=== PATIENT | male | born 1985 | race Caucasian/White ===

== ENCOUNTER 2024-02-11 19:10 | Emergency (ER) | payer BC, SELFPAY ==
[2024-02-11 19:12] VITALS: BP 116/75
--- NOTE | 2024-02-11 19:58 | ED.GENMED ---
History of Present Illness
General
Chief Complaint: Musculo-Skeletal Complaint
Time Seen by Provider: 02/11/24 19:49
History of Present Illness
History of Present Illness:
38-year-old male presents to the emergency department for evaluation of right foot and ankle pain after colliding with another player during a lacrosse game. Is unable to bear weight on the right foot
Review of Systems
Review of Systems
Allergies reviewed?: Yes
All Other Systems: ROS reviewed and negative except as documented in HPI and ROS
Phy Exam
Physical Exam
Physical Exam:
GEN: Well appearing, NAD, WDWN
HEENT: Oral mucosa moist, no scleral icterus
Cardiac: Regular rate
Lung: No respiratory distress, no tachypnea
MSK: Moderate swelling and ecchymosis of the right ankle posterior to the talus. There is flaccidity to the Achilles tendon and a positive Whitley sign
Skin: Good color, no pallor or jaundice, no rashes
Neuro: AO x3, moves all extremities freely
Psych: Calm, cooperative
Course
Orders/Labs/Results
Orders:
Orders
02/11/24 19:14
Ankle, Right 3 view CR [CR Ankle - Right Min 3 Views *] Urgent
Comment:
Reason For Exam: injury
Vital Signs
Initial and Last Documented VS:
Initial Vital Signs
Temp Pulse Resp BP Pulse Ox
97.9 F 83 16 116/75 100
02/11/24 19:12 02/11/24 19:12 02/11/24 19:12 02/11/24 19:12 02/11/24 19:12
Last Documented Vital Signs
Temp Pulse Resp BP Pulse Ox
97.9 F 89 18 131/67 99
02/11/24 19:12 02/11/24 20:22 02/11/24 20:22 02/11/24 20:22 02/11/24 20:22
MDM/Problems Addressed
MDM/Problems Addressed:
Clinical exam concerning for Achilles tendon rupture. X-rays show a subtle fracture of the os trigonum. Patient is placed in a orthopedic boot for stabilization, advised nonweightbearing with crutches until orthopedic follow-up as an outpatient
*Critical Care Note
Total Time (30-74mins, 75-104mins- exclusive of procedures): Not Applicable
ED Attending Note
-
Portions of this chart may have been created with voice recognition software.� Occasional wrong word or��sound alike� substitutions may have occurred due to the inherent limitations of voice recognition software.
Discharge Plan
Departure
Patient Disposition: Home (Routine Discharge)
Date of Disposition: 02/11/24
Time of Disposition: 19:58
Patient with high blood pressure during this ER visit?: No
Discharge Problem:
Rupture of right Achilles tendon, fracture of right os trigonum
Instructions: Achilles Tendon Rupture (DC)
Referrals:
Jan George MD [Active] - Call in 1-3 days for appt
Activity Restrictions/Additional Instructions:
Ice and elevate the foot often
Interventions
Interventions:
*Risk Screen - Suicide Last Done: 02/11/24 20:20
*General Assessment Last Done: 02/11/24 19:12
*Neglect/Abuse Screening Last Done: 02/11/24 20:20
*Nursing Disposition Last Done: 02/11/24 20:22
ED-Musculoskeletal Assessment Last Done: 02/11/24 19:38
Discharge Date and Time
Discharge Date/Time: 02/11/24 20:23
Print Language: FAROESE
[2024-02-11 20:20] VITALS: BP 131/67
[2024-02-11 20:22] VITALS: BP 131/67
== END 2024-02-11 20:23 | disposition home or self-care (01) ==
LOC: EMR 19:10
PROVIDERS: EMERGENCY PHYSICIAN Emergency Medicine; FAMILY PHYSICIAN Nurse Practitioner Family
DX: S86.011A Strain of right Achilles tendon, initial encounter (principal); S82.891A Other fracture of right lower leg, initial encounter for closed fracture; W51.XXXA Accidental striking against or bumped into by another person, initial encounter
CPT/HCPCS: 99283; 73610

== ENCOUNTER → 2024-02-12 17:11 | Outpatient (REF) | payer BC, SELFPAY | LOC: RAD 17:11 | PROVIDERS: ATTENDING PHYSICIAN Orthopaedic Surgery; FAMILY PHYSICIAN Nurse Practitioner Family | DX: Z98.890 Other specified postprocedural states (principal) | CPT/HCPCS: 70030 ==

== ENCOUNTER 2024-07-29 09:09 | Emergency (ER) | payer BC, SELFPAY ==
[2024-07-29 09:18] VITALS: BP 144/90
[2024-07-29 09:58] LABS: % Basophils 0.5 % (0-2); % Eosinophils 1.6 % (0-6); % Immature Granulocytes 0.5 % (0-0.5); % Lymphocytes 31.4 % (20.5-51.1); % Monocytes 9.1 % (1.7-9.3); % Neutrophils 56.9 % (42.2-75.2); Absolute Eosinophils 0.1 10^3/uL (0-0.7); Absolute Lymphocytes 2.8 10^3/uL (1.2-3.4); Absolute Monocytes 0.8 10^3/uL (0.1-0.6); Absolute Neutrophils 5.1 10^3/uL (1.4-6.5); Hemoglobin 18.3 g/dL (13.0-18.0); Mean Corp Hgb Conc. 35.9 g/dL (33.0-37.0); Mean Corpuscular Hgb 30.1 pg (27.0-31.0); Mean Corpuscular Volume 83.9 fL (80.0-94.0); Mean Platelet Volume 9.4 fL (7.4-10.4); Nucleated Red Blood Cells % 0 % (-); Platelet Count 275 10^3/uL (130-400); Red Blood Cell Count 6.08 10^6/uL (4.70-6.10); Red Cell Dist. Width 11.9 % (11.5-14.5); White Blood Cell Count 8.9 10^3/uL (4.8-10.8)
[2024-07-29 10:09] LABS: Urine Albumin Negative (Neg - Trace); Urine Bilirubin Negative (Negative); Urine Character Clear (Clear); Urine Color Yellow; Urine Glucose Negative (Negative); Urine Ketone Trace (Negative); Urine Leukocyte Negative (Negative); Urine Nitrite Negative (Negative); Urine Occult Blood Negative (Negative); Urine Urobilinogen Negative (Neg - 1+)
[2024-07-29 10:15] LABS: ALT (SGPT) 26 U/L (0-50); AST (SGOT) 24 U/L (17-59); Albumin 4.8 g/dl (3.5-5.0); Alkaline Phosphatase 55 U/L (38-126); Blood Urea Nitrogen 12 mg/dl (9-20); Calcium 9.7 mg/dl (8.4-10.2); Carbon Dioxide 25 mmol/L (22-30); Chloride 98 mmol/L (98-107); Glucose 88 mg/dl (70-99); Potassium 4.5 mmol/L (3.5-5.1); Sodium 136 mmol/L (135-145); Total Bilirubin 3.6 mg/dl (0.2-1.3); Total Protein 7.8 g/dl (6.3-8.2); eGFR > 60.00
[2024-07-29 10:31] LABS: Lipase 56 U/L (23-300)
--- NOTE | 2024-07-29 10:45 | ED.GENMED ---
History of Present Illness
General
Chief Complaint: Abdominal Pain
Source: patient
Exam Limitations: none
Time Seen by Provider: 07/29/24 10:45
Nursing documentation reviewed up to this point in time: agreed with
History of Present Illness
History of Present Illness:
Patient is a 38-year-old male presents to the ED for evaluation. Pt reports he started having upper abdominal pain on Saturday 4 days ago. On Saturday he was at [employer] (did not drink alcohol ) and started again with upper abdominal pain and
vomited. On Saturday, he vomited approx 10 times. He had no associated diarrhea /fevers with episode.
Patient went to urgent care yesterday and was given Zofran and recommended to come to the ER for abdominal pain evaluation. He decided to try to go home however he was up throughout the night with complaints of pain. He complains of pain around
the umbilical area and upper. He reports it is intermittent feels very sharp at times. He denies any lower abdominal pain. No prior history of reflux.
He does have a GI specialist because his mother had multiple polyps removed.
No other sick contacts at home.
No drinks alcohol socially.
Review of Systems
Review of Systems
Allergies reviewed?: Yes
Other source history: family
All Other Systems: ROS reviewed and negative except as documented in HPI and ROS
Constitutional: Reports no symptoms; Denies fever, fatigue or chills
Respiratory: Reports no symptoms
Cardiac: Reports no symptoms
ABD/GI: Reports abdominal pain, nausea and vomiting; Denies diarrhea, constipated, bloody stools or black stools
: Reports no symptoms
Musculoskeletal: Reports no symptoms
Skin: Reports no symptoms
Neurological: Reports no symptoms
Psychiatric: Reports no symptoms
Phy Exam
General Physical Exam
General Presentation: no apparent distress
General age: appears stated age
General Skin: warm and dry
General Habitus: normal
General Mental: alert
Cardiovascular Exam
Cardiovascular Exam: regular rate/rhythm, no murmur and normal peripheral pulses
Pulmonary Exam
Pulmonary Exam: lungs clear and no respiratory distress
Gastrointestinal Exam
Gastrointestinal Exam: non tender and soft
Neurological Exam
Neurological Exam: alert
Nathalie Coma Scale
Eye Opening: Spontaneous
Verbal Response: Oriented
Motor Response: Obeys Commands
GCS Total Score: 15
Musculoskeletal Exam
Musculoskeletal Exam: full ROM
Skin Exam
Skin Exam: normal color and warm/dry
Psychiatric Exam
Psychiatric Exam: normal mood/affect
Course
Orders/Labs/Results
Orders:
Orders
07/29/24 09:26
Complete Blood Count/With Diff Urgent
Comprehensive Metabolic Panel Urgent
Lipase Urgent
Urinalysis Reflex To Culture Urgent
Date Specimen was Collected: 07/29/24
Time Specimen was Collected: 09:20
07/29/24 11:00
IV Insert/Care/Rem.- Treatment PRN
0.9% Sodium Chloride 1000 ml [Nss] 1,000 ml IV BOLUS
Famotidine [Pepcid] 20 mg IV NOW STA
Ondansetron Injectable [Zofran] 4 mg IV NOW STA
US Abdomen Complete/Upper Urgent
Comment:
Reason For Exam: upper abd pain
Abnormal Lab Results
07/29/24
09:26
Hgb 18.3 H g/dL
(13.0-18.0)
Absolute Monos (auto) 0.8 H 10^3/uL
(0.1-0.6)
Total Bilirubin 3.6 H mg/dl
(0.2-1.3)
Urine Ketones Trace A
(Negative)
07/29/24 09:26
07/29/24 09:26
Vital Signs
Initial and Last Documented VS:
Initial Vital Signs
Temp Pulse Resp BP Pulse Ox
98.7 F 66 16 144/90 100
07/29/24 09:18 07/29/24 09:18 07/29/24 09:18 07/29/24 09:18 07/29/24 09:18
Last Documented Vital Signs
Temp Pulse Resp BP Pulse Ox
98.7 F 70 18 130/79 100
07/29/24 09:18 07/29/24 11:40 07/29/24 11:40 07/29/24 11:40 07/29/24 11:40
MDM/Problems Addressed
Differential Diagnosis Includes:
not limited to: Viral syndrome dehydration GERD gastritis less likely biliary colic or acute pancreatitis
MDM/Problems Addressed:
Symptoms of abdominal pain are likely gastritis from multiple episodes of vomiting. Patient reports pain is intermittent. He has no acute distress no lower abdominal pain symptoms are not consistent with appendicitis or diverticulitis. Patient's
bilirubin is elevated however he has normal AST ALT and has had elevated bilirubins in the past possible Gilbert's disease.
Other labs unremarkable including normal white count normal chemistries. Ultrasound negative for acute findings pancreas is not visualized however normal lipase. Patient no acute distress with patient's complaints of strong intermittent abdominal
pains worse at night to upper abdominal umbilical area will DC on Protonix for the next 2 weeks with Zofran as needed for close the patient follow family doctor and GI specialist.
*Critical Care Note
Total Time (30-74mins, 75-104mins- exclusive of procedures): Not Applicable
ED Attending Note
-
Portions of this chart may have been created with voice recognition software.� Occasional wrong word or��sound alike� substitutions may have occurred due to the inherent limitations of voice recognition software.
Discharge Plan
Departure
Patient Disposition: Home (Routine Discharge)
Date of Disposition: 07/29/24
Time of Disposition: 12:27
Patient with high blood pressure during this ER visit?: Yes
Condition: Fair
Covid-19: Not Applicable
Discharge Problem:
Gastritis, Vomiting
Instructions: Nausea and Vomiting, Adult (DC), Gastritis (DC)
Prescriptions:
New
ondansetron 4 mg tablet,disintegrating
4 mg PO Q8H PRN (Reason: nausea and vomiting) Qty: 10 0RF
pantoprazole [Protonix] 40 mg tablet,delayed release (DR/EC)
40 mg PO DAILY Qty: 14 0RF
Referrals:
Kristina Garces CRNP [Family Provider] -
Stand Alone Forms: Return to Work
Interventions
Interventions:
*Risk Screen - Suicide Last Done: 07/29/24 09:18
*General Assessment Last Done: 07/29/24 11:40
*Neglect/Abuse Screening Last Done: 07/29/24 09:18
ED- Fall Risk Assessment Last Done: 07/29/24 11:40
*ED COVID-19 Vaccine History Last Done: 07/29/24 11:40
[facility]lteq[facility] Assessment Last Done: 07/29/24 11:40
Discharge Date and Time
Print Language: ANGUILLAN
[2024-07-29 11:40] VITALS: BP 130/79; BMI 28.1
[2024-07-29] MEDS: ZOFRAN 4 MG IV (11:48)
[2024-07-29] MEDS: NSS 1000 IV (11:48)
[2024-07-29] MEDS: PEPCID 20 MG IV (11:49)
[2024-07-29 12:00] VITALS: BP 136/80
[2024-07-29 13:00] VITALS: BP 135/80
== END 2024-07-29 13:26 | disposition home or self-care (01) ==
LOC: EMR 09:09
PROVIDERS: Emergency Medicine; EMERGENCY PHYSICIAN Emergency Medicine; FAMILY PHYSICIAN Nurse Practitioner Family
DX: K29.70 Gastritis, unspecified, without bleeding (principal)
CPT/HCPCS: 96374; 96375; 96361; 99284; 76700; 80053; 81003; 83690; 85025

== ENCOUNTER 2025-06-08 13:14 | Emergency (ER) | payer BC, SELFPAY ==
[2025-06-08 13:21] VITALS: BP 160/92
--- NOTE | 2025-06-08 13:51 | ED.GENMED ---
History of Present Illness
General
Chief Complaint: Headache
Source: patient
Exam Limitations: none
Time Seen by Provider: 06/08/25 13:50
History of Present Illness
History of Present Illness:
39yoM with no significant past medical history presenting with his for evaluation of headache and dizziness. He reports a pain in his left temporal area that has been ongoing for the past 2 weeks. Pain is mild for the most part but becomes
worse at times. He also is having pain behind the left eye. His eyes will be red when he wakes up in the morning. He also reports intermittent dizziness which is describes as feeling like he is on a boat and not feeling like himself. He felt
like he had a pass out this morning and decided to come to the ED. Patient also reports visual disturbance and feels like objects are 'streaking' when he moves his eyes quickly. He denies any diplopia or visual field cuts. He was seen at urgent
care 1-2 years ago for jaw pain and was prescribed a muscle relaxer. He denies any jaw pain with movement/chewing.
Phy Exam
General Physical Exam
General Presentation: well appearing and no apparent distress
General age: appears stated age
General Skin: warm and dry
General Habitus: normal
General Mental: alert
ENT Exam
ENT Exam: normocephalic and other (L TM normal. Cerumen impaction in R ear.)
Additional ENT: No temporal tenderness.
Eye Exam
Eye Exam: PERRL, EOMI, conjunctiva normal, visual larry normal and other (Pressure in both eyes 18-19mmHg)
Right 20/: 20
Left 20/: 20
Pulmonary Exam
Pulmonary Exam: no respiratory distress
Neurological Exam
Neurological Exam: alert, no motor deficits, cerebellum intact and other (Normal finger to nose and heel to vázquez bilaterally)
Clifford Coma Scale
Eye Opening: Spontaneous
Verbal Response: Oriented
Motor Response: Obeys Commands
GCS Total Score: 15
Skin Exam
Skin Exam: normal color and warm/dry
Psychiatric Exam
Psychiatric Exam: normal mood/affect
Course
Orders/Labs/Results
Orders:
Orders
06/08/25 13:22
Electrocardiogram (*1) Urgent
Reason for Study: Vertigo / Dizzy
06/08/25 13:23
EKG- Treatment ONCE
06/08/25 13:51
Visual Acuity- Treatment ONCE
06/08/25 14:05
CT Head W/o Iv Contrast Urgent
Comment:
Reason For Exam: acute headache
CT Orbits W/o Iv Contrast Urgent
Comment:
Reason For Exam: pain behind L eye
CRP [C-Reactive Protein] Urgent
Complete Blood Count/With Diff Urgent
Comprehensive Metabolic Panel Urgent
ESR [Erythrocyte Sed Rate] Urgent
Abnormal Lab Results
06/08/25
14:05
Abs Immat Gran (auto) 0.1 H 10^3/uL
(0-0.05)
Immature Gran % 0.7 H %
(0-0.5)
Glucose 103 H mg/dl
(70-99)
Total Bilirubin 2.0 H mg/dl
(0.2-1.3)
06/08/25 14:05
06/08/25 14:05
Vital Signs
Initial and Last Documented VS:
Initial Vital Signs
Temp Pulse Resp BP Pulse Ox
98.1 F 62 16 160/92 100
06/08/25 13:21 06/08/25 13:21 06/08/25 13:21 06/08/25 13:21 06/08/25 13:21
Last Documented Vital Signs
Temp Pulse Resp BP Pulse Ox
98.1 F 55 16 127/75 100
06/08/25 13:21 06/08/25 16:09 06/08/25 13:21 06/08/25 16:09 06/08/25 13:51
MDM/Problems Addressed
Differential Diagnosis Includes:
39yoM here with L temporal headache and pain behind L eye x 2 weeks. Associated with intermittent dizziness. No rash visualized on exam. Pupillary exam is normal and extraocular movements are intact. Visual acuity 20/20. Intraocular pressures
normal. Neuro exam nonfocal. Differential diagnosis includes: Migraine, tension headache, cluster headaches, consider temporal arteritis, brain mass
Initial ED plan: Check CBC, CMP, ESR/CRP, and CT head and orbits.
*Pulse Oximetry
SaO2: 100
Oxygen Mode of Delivery: Room air
Patient hypoxic: no
*EKG
Interpreted by ED Provider?: Yes
EKG Intrepretation Date: 06/08/25
Heart Rate: 48
Rate: bradycardiac
Rhythm: sinus
Flagler: normal axis
Interval: normal interval
QRS Pattern: normal QRS
Ischemia: no ischemia
*Critical Care Note
Total Time (30-74mins, 75-104mins- exclusive of procedures): Not Applicable
Update Note
Update Note:
Labs unremarkable. Inflammatory markers are normal essentially ruling out temporal arteritis. CT head/orbits are negative for acute findings. 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 Unclear
etiology of symptoms. No indication for hospitalization. He was advised to f/u with neurology, ophthalmology for formal eye exam, and PCP. ED return precautions reviewed. Patient in agreement with plan and was discharged in stable condition.
ED Attending Note
-
Portions of this chart may have been created with voice recognition software.� Occasional wrong word or��sound alike� substitutions may have occurred due to the inherent limitations of voice recognition software.
Discharge Plan
Departure
Patient Disposition: Home (Routine Discharge)
Date of Disposition: 06/08/25
Time of Disposition: 16:00
Patient with high blood pressure during this ER visit?: Yes
Discharge Problem:
Left temporal headache, Dizziness
Prescriptions:
No Action
ondansetron 4 mg tablet,disintegrating
4 mg PO Q8H PRN (Reason: nausea and vomiting) Qty: 10 0RF
pantoprazole [Protonix] 40 mg tablet,delayed release (DR/EC)
40 mg PO DAILY Qty: 14 0RF
Referrals:
Demetri Martin MD [Active, Ophthalmology]
Enriqeu Jacques MD [Active, Neurology]
Kristina Garces CRNP [Family Provider]
Activity Restrictions/Additional Instructions:
Please call today to schedule follow-up appointments with your family doctor, neurology, and ophthalmology.
Return to the ER with any new or worsening neurologic symptoms.
Interventions
Interventions:
*Risk Screen - Suicide Last Done: 06/08/25 13:21
*General Assessment Last Done: 06/08/25 16:06
*Neglect/Abuse Screening Last Done: 06/08/25 16:06
*ED- Fall Risk Assessment Last Done: 06/08/25 16:06
*ED COVID-19 Vaccine History Last Done: 06/08/25 16:06
*ED Influenza Vaccine History Last Done: 06/08/25 16:06
*Nursing Disposition Last Done: 06/08/25 16:06
ED- Neurological Assessment Last Done: 06/08/25 14:00
Discharge Date and Time
Discharge Date/Time: 06/08/25 16:09
Print Language: ALGERIAN
[2025-06-08 14:44] LABS: Hematocrit 45.5 % (39.0-52.0); Hemoglobin 16.4 g/dL (13.0-18.0); Mean Corp Hgb Conc. 36.0 g/dL (33.0-37.0); Mean Corpuscular Volume 83.0 fL (80.0-94.0); Nucleated Red Blood Cells % 0 % (-); Platelet Count 241 10^3/uL (130-400); Red Cell Dist. Width 11.9 % (11.5-14.5)
[2025-06-08 14:56] LABS: ALT (SGPT) 27 U/L (0-50); AST (SGOT) 25 U/L (17-59); Albumin 4.6 g/dl (3.5-5.0); Alkaline Phosphatase 54 U/L (38-126); Blood Urea Nitrogen 15 mg/dl (9-20); Calcium 9.3 mg/dl (8.4-10.2); Carbon Dioxide 29 mmol/L (22-30); Chloride 100 mmol/L (98-107); Glucose 103 mg/dl (70-99); Potassium 4.6 mmol/L (3.5-5.1); Sodium 135 mmol/L (135-145); Total Protein 7.5 g/dl (6.3-8.2); eGFR > 60.00
[2025-06-08 14:58] LABS: C-Reactive Protein < 5.00 mg/L (0.0-10.00)
[2025-06-08 16:09] VITALS: BP 127/75
== END 2025-06-08 16:09 | disposition home or self-care (01) ==
LOC: EMR 13:14
PROVIDERS: Physician Assistant; EMERGENCY PHYSICIAN Student in an Organized Health Care Education/Training Program; FAMILY PHYSICIAN Nurse Practitioner Family
DX: R51.9 Headache, unspecified (principal); R42 Dizziness and giddiness; D16.9 Benign neoplasm of bone and articular cartilage, unspecified; H61.21 Impacted cerumen, right ear
CPT/HCPCS: 99284; 70450; 70480; 80053; 85025; 85652; 86140; 93005